=== PATIENT | male | born 1965 | race Caucasian/White ===

== ENCOUNTER → 2016-11-30 | Outpatient (CLI) | payer OTHER | LOC: EMI 17:15 | DX: M54.31 Sciatica, right side (principal) | CPT/HCPCS: 72148 ==

== ENCOUNTER 2021-08-06 18:23 | Emergency (ER) | payer BC ==
[2021-08-06] MEDS ORDERED: CYCLOBENZAPRIN7.5 MG PO (23:29)
== END 2021-08-06 23:42 | disposition home or self-care (01) ==
LOC: ER1 18:23
DX: M25.511 Pain in right shoulder (principal); F17.210 Nicotine dependence, cigarettes, uncomplicated; J44.9 Chronic obstructive pulmonary disease, unspecified; X50.9XXA Other and unspecified overexertion or strenuous movements or postures, initial encounter; Y99.0 Civilian activity done for income or pay
CPT/HCPCS: 72040; 73030; 99283